=== PATIENT | male | born 2005 | race Asian ===

== ENCOUNTER 2024-08-15 13:31 | Emergency (ER) | payer OTHER ==
[~2024-08-15] VITALS: Ht 175.3 cm; Wt 105.3 kg
[2024-08-15 14:08] LABS: HEMATOCRIT 46.9 % (42.0-52.0); HEMOGLOBIN 15.7 g/dl (13.5-17.5); MEAN CORPUSCULAR HEMOGLOBIN 27.8 pg (27.0-33.0); MEAN CORPUSCULAR HGB CONC 33.5 g/dl (32.0-36.5); PLATELET COUNT, AUTOMATED 252 10^3/uL (150-450); RED BLOOD COUNT 5.65 10^6/uL (4.30-6.10); WHITE BLOOD COUNT 13.1 10^3/uL (4.0-10.0)
[2024-08-15 14:41] LABS: ETHYL ALCOHOL (ETHANOL) < 0.003 % (0.000-0.010)
[2024-08-15 14:43] LABS: ALBUMIN 4.3 G/DL (3.2-5.2); ALKALINE PHOSPHATASE 69 U/L (40-129); ALT/SGPT 50 U/L (7.0-40); AST/SGOT 51 U/L (<34); BILIRUBIN,DIRECT 0.2 MG/DL (<0.4); BILIRUBIN,TOTAL 0.7 MG/DL (0.3-1.2); BLOOD UREA NITROGEN 24 MG/DL (9-23); CALCIUM LEVEL 9.7 MG/DL (8.5-10.1); CARBON DIOXIDE LEVEL 25 MMOL/L (20-31); CHLORIDE LEVEL 104 MMOL/L (98-107); GLOMERULAR FILTRATION RATE > 60.0 (>60); GLUCOSE, FASTING 94 MG/DL (60-100); SALICYLATE LEVEL < 3.0 MG/DL (<30); SODIUM LEVEL 138 MMOL/L (136-145); TOTAL PROTEIN 7.9 G/DL (5.7-8.2)
[2024-08-15 14:51] LABS: AMPHETAMINES LEVEL URINE NEGATIVE (NEGATIVE); BARBITURATES URINE NEGATIVE (NEGATIVE); BENZODIAZEPINES URINE NEGATIVE (NEGATIVE); CANNABINOIDS URINE NEGATIVE (NEGATIVE); COCAINE METABOLITE URINE NEGATIVE (NEGATIVE); METHADONE URINE NEGATIVE (NEGATIVE); OPIATES URINE NEGATIVE (NEGATIVE); PHENCYCLIDINE URINE NEGATIVE (NEGATIVE)
[2024-08-15] MEDS ORDERED: FLUO-290 PO (15:49)
[2024-08-15] MEDS ORDERED: BUSP15TA47 PO (15:51)
[2024-08-15] MEDS ORDERED: HOME MED LIST COMPLETE! XX SCH (15:55)
[2024-08-15 16:06] VITALS: BP 147/93; TEMP 97.6; O2SAT 96
== END 2024-08-15 16:14 | disposition home or self-care (01) ==
LOC: EDBD 13:31 → M ED 13:31
DX: F32.A Depression, unspecified (principal); Z79.899 Other long term (current) drug therapy

== ENCOUNTER 2024-10-23 07:29 | Inpatient (IN) | payer OTHER ==
[~2024-10-23] VITALS: Ht 175.3 cm; Wt 104.5 kg
[~2024-10-23 07:29] MED LIST: BUSP15TA47 PO; FLUO-290 PO
[2024-10-23 08:23] LABS: HEMATOCRIT 49.5 % (42.0-52.0); HEMOGLOBIN 16.4 g/dl (13.5-17.5); MEAN CORPUSCULAR HEMOGLOBIN 27.7 pg (27.0-33.0); MEAN CORPUSCULAR HGB CONC 33.1 g/dl (32.0-36.5); MEAN CORPUSCULAR VOLUME 83.5 fl (80.0-96.0); PLATELET COUNT, AUTOMATED 232 10^3/uL (150-450); RED BLOOD COUNT 5.93 10^6/uL (4.30-6.10); WHITE BLOOD COUNT 8.7 10^3/uL (4.0-10.0)
[2024-10-23 08:41] LABS: AMPHETAMINES LEVEL URINE NEGATIVE (NEGATIVE); BARBITURATES URINE NEGATIVE (NEGATIVE); BENZODIAZEPINES URINE NEGATIVE (NEGATIVE); CANNABINOIDS URINE NEGATIVE (NEGATIVE); COCAINE METABOLITE URINE NEGATIVE (NEGATIVE); METHADONE URINE NEGATIVE (NEGATIVE); OPIATES URINE NEGATIVE (NEGATIVE); PHENCYCLIDINE URINE NEGATIVE (NEGATIVE)
[2024-10-23 08:42] LABS: ETHYL ALCOHOL (ETHANOL) 0.004 % (0.000-0.010)
[2024-10-23 08:44] LABS: ALBUMIN 4.5 G/DL (3.2-5.2); ALKALINE PHOSPHATASE 65 U/L (40-129); ALT/SGPT 43 U/L (7.0-40); AST/SGOT 28 U/L (<34); BILIRUBIN,DIRECT 0.2 MG/DL (<0.4); BILIRUBIN,TOTAL 0.9 MG/DL (0.3-1.2); BLOOD UREA NITROGEN 19 MG/DL (9-23); CALCIUM LEVEL 10.1 MG/DL (8.5-10.1); CARBON DIOXIDE LEVEL 25 MMOL/L (20-31); CHLORIDE LEVEL 104 MMOL/L (98-107); CREATININE FOR GFR 1.15 MG/DL (0.70-1.30); GLOMERULAR FILTRATION RATE > 60.0 (>60); GLUCOSE, FASTING 101 MG/DL (60-100); SALICYLATE LEVEL < 3.0 MG/DL (<30); SODIUM LEVEL 138 MMOL/L (136-145); TOTAL PROTEIN 8.1 G/DL (5.7-8.2)
[2024-10-23] MEDS ORDERED: HOME MED LIST COMPLETE! XX SCH (11:20)
[2024-10-23] MEDS ORDERED: ACETAMINOPHEN 325 MG TAB PO PRN (12:35)
[2024-10-23] MEDS ORDERED: MAALOX 30 ML SUSP *UDC PO PRN (12:35)
[2024-10-23] MEDS ORDERED: IBUPROFEN 400MG TAB PO PRN (12:35)
[2024-10-23] MEDS ORDERED: MOM 30ML SUSPENSION UDC PO PRN (12:35)
[2024-10-23 17:37] VITALS: BP 124/84; TEMP 97.6; O2SAT 97
[2024-10-23] MEDS: traZODone 50 MG TAB PO PRN (20:38)
[2024-10-24] MEDS: diphenhydrAMINE 25MG CAP PO PRN (00:54)
[2024-10-24 06:20] VITALS: BP 120/58; TEMP 97; O2SAT 97
[2024-10-24] MEDS ORDERED: LOPERAMIDE 2 MG CAPLET PO PRN (11:20)
[2024-10-24 16:33] VITALS: BP 136/88; TEMP 98.4; O2SAT 98
[2024-10-25 06:26] VITALS: BP 150/67; TEMP 97; O2SAT 95
[2024-10-25 14:53] VITALS: BP 150/67; TEMP 98.7; O2SAT 97
[2024-10-25] MEDS: RAMELTEON 8 MG TAB (ROZEREM) PO SCH (20:55)
[2024-10-26 06:20] VITALS: BP 120/68; TEMP 97.5; O2SAT 99
[2024-10-26 14:57] VITALS: BP 125/68; TEMP 98.2; O2SAT 98
[2024-10-26] MEDS: traZODone 50 MG TAB PO PRN (20:35)
[2024-10-27 06:25] VITALS: BP 100/50; TEMP 96.2; O2SAT 97
[2024-10-27] MEDS ORDERED: TRAZ-252 PO (08:53)
[2024-10-30 15:28] LABS: HLA-B27 Negative (Negative)
== END 2024-10-27 12:15 | disposition home or self-care (01) | DRG 881 ==
LOC: M ED 07:29 → M ED INP 12:31 → M PSY 17:36
PROVIDERS: ADMIT Psychiatry & Neurology Psychiatry; ATTEND Psychiatry & Neurology Psychiatry
DX: F32.A Depression, unspecified (principal); R45.851 Suicidal ideations; F41.9 Anxiety disorder, unspecified; Z79.899 Other long term (current) drug therapy; R19.7 Diarrhea, unspecified; M54.59 Other low back pain

== ENCOUNTER 2025-02-01 12:52 | Emergency (ER) | payer OTHER ==
[~2025-02-01] VITALS: Ht 175.3 cm; Wt 106.3 kg
[~2025-02-01 12:52] MED LIST changes: +TRAZ-252 PO
[2025-02-01 12:54] VITALS: TEMP 97.9
[2025-02-01] MEDS ORDERED: SERT25TA21 (13:00)
[2025-02-01] MEDS: LIDOCAINE 2% MDV 20ML VIAL SC ONE (17:20)
[2025-02-01 17:23] VITALS: BP 136/84; O2SAT 100
[2025-02-01] MEDS ORDERED: SULF1TAB23 PO (17:37)
== END 2025-02-01 17:46 | disposition home or self-care (01) ==
LOC: M ED 12:52
DX: L02.415 Cutaneous abscess of right lower limb (principal)

== ENCOUNTER 2025-09-04 03:03 | Inpatient (IN) | payer OTHER ==
[~2025-09-04] VITALS: Ht 175.3 cm; Wt 108.5 kg
[~2025-09-04 03:03] MED LIST changes: +SERT25TA21; +SULF-7 PO
[2025-09-04 04:29] LABS: PLATELET COUNT, AUTOMATED 238 10^3/uL (150-450)
[2025-09-04 04:54] LABS: AMPHETAMINES LEVEL URINE NEGATIVE (NEGATIVE); BARBITURATES URINE NEGATIVE (NEGATIVE); BENZODIAZEPINES URINE NEGATIVE (NEGATIVE); CANNABINOIDS URINE NEGATIVE (NEGATIVE); COCAINE METABOLITE URINE NEGATIVE (NEGATIVE); METHADONE URINE NEGATIVE (NEGATIVE); OPIATES URINE NEGATIVE (NEGATIVE); PHENCYCLIDINE URINE NEGATIVE (NEGATIVE)
[2025-09-04 04:55] LABS: ETHYL ALCOHOL (ETHANOL) < 0.003 % (0.000-0.010)
[2025-09-04 04:57] LABS: SALICYLATE LEVEL < 3.0 MG/DL (<30)
[2025-09-04 04:58] LABS: ALT/SGPT 33 U/L (7.0-40); AST/SGOT 25 U/L (<34); CALCIUM LEVEL 8.8 MG/DL (8.5-10.1); CARBON DIOXIDE LEVEL 25 MMOL/L (20-31); CHLORIDE LEVEL 104 MMOL/L (98-107); CREATININE FOR GFR 1.04 MG/DL (0.70-1.30); GLOMERULAR FILTRATION RATE > 90.0 (>60); POTASSIUM SERUM 3.8 MMOL/L (3.5-5.1); SODIUM LEVEL 140 MMOL/L (136-145)
[2025-09-04] MEDS ORDERED: traZODone 50 MG TAB PO PRN (06:05)
[2025-09-04] MEDS ORDERED: MOM 30 ML SUSPENSION UDC PO PRN (06:05)
[2025-09-04] MEDS ORDERED: OLANZapine 5 MG TAB PO PRN (06:05)
[2025-09-04] MEDS ORDERED: ACETAMINOPHEN 325 MG TAB PO PRN (06:05)
[2025-09-04] MEDS ORDERED: BUPR150T12 PO (08:28)
[2025-09-04] MEDS ORDERED: TRAZ1TAB10 PO (08:28)
[2025-09-04] MEDS ORDERED: HOME MED LIST COMPLETE! XX SCH (08:30)
[2025-09-04 09:55] VITALS: BP 131/78; TEMP 96.7; O2SAT 100
[2025-09-04 14:43] VITALS: BP 113/60; TEMP 97.6; O2SAT 100
[2025-09-04] MEDS: IBUPROFEN 400 MG TAB PO PRN (20:25)
[2025-09-05 06:27] VITALS: BP 113/63; TEMP 97; O2SAT 97
[2025-09-05] MEDS: buPROPion **XL** 150 MG TABLET PO SCH (09:00)
[2025-09-05 15:11] VITALS: BP 132/62; TEMP 97.7; O2SAT 95
[2025-09-05] MEDS: RAMELTEON 8 MG TAB PO SCH (21:00)
[2025-09-06 06:19] VITALS: BP 107/54; TEMP 97.7; O2SAT 98
[2025-09-06] MEDS: buPROPion **XL** 150 MG TABLET PO ONE (11:04)
[2025-09-06 16:24] VITALS: BP 128/66; TEMP 97.1; O2SAT 98
[2025-09-06] MEDS: MAALOX 30 ML SUSP *UDC PO PRN (20:55)
[2025-09-07 06:29] VITALS: BP 112/51; TEMP 97; O2SAT 99
[2025-09-07] MEDS: buPROPion **XL** 150 MG TABLET PO SCH (09:20)
[2025-09-07] MEDS ORDERED: LIDOCAINE 5% PATCH TD PRN (11:10)
[2025-09-07 14:27] VITALS: BP 119/64; TEMP 98; O2SAT 95
[2025-09-07] MEDS: traZODone 50 MG TAB PO PRN (20:11)
[2025-09-08 06:17] VITALS: BP 110/80; TEMP 98.1; O2SAT 100
[2025-09-08 15:06] VITALS: BP 133/69; TEMP 98.5; O2SAT 96
[2025-09-08] MEDS: traZODone 100 MG TAB PO PRN (22:29)
[2025-09-09 06:28] VITALS: BP 110/56; TEMP 96.8; O2SAT 96
[2025-09-09 15:14] VITALS: BP 134/79; TEMP 98.2; O2SAT 97
[2025-09-10 06:37] VITALS: BP 111/65; TEMP 97.5; O2SAT 99
[2025-09-11 06:36] VITALS: BP 104/59; TEMP 97.1; O2SAT 96
[2025-09-11] MEDS: ESCITALOPRAM OXALATE 5 MG TABLET PO SCH (08:32)
[2025-09-11] MEDS ORDERED: PILL CUTTER 1 EACH XX PRN (12:55)
[2025-09-11 19:35] VITALS: BP 133/86
[2025-09-11] MEDS: PROPRANOLOL 10 MG TAB PO PRN (19:35)
[2025-09-11] MEDS: traZODone 100 MG TAB PO PRN (20:11)
[2025-09-12 06:29] VITALS: BP 109/55; TEMP 97; O2SAT 99
[2025-09-12 17:16] VITALS: BP 134/68; TEMP 97.5; O2SAT 98
[2025-09-13 06:13] VITALS: BP 104/60; TEMP 97.5; O2SAT 96
[2025-09-13] MEDS ORDERED: BUPR-766 PO (09:12)
[2025-09-13] MEDS ORDERED: TRAZ1TAB10 PO (09:12)
[2025-09-13] MEDS ORDERED: PROP10TA56 PO (09:12)
[2025-09-13] MEDS ORDERED: LEXA1TAB PO (09:12)
[2025-09-13] MEDS: ESCITALOPRAM OXALATE 10 MG TABLET PO SCH (09:15)
[2025-09-13 14:26] VITALS: BP 153/89; TEMP 97.7; O2SAT 99
[2025-09-14 06:22] VITALS: BP 110/53; TEMP 97.1; O2SAT 98
[2025-09-14 15:36] VITALS: BP 121/79; TEMP 98.3; O2SAT 98
[2025-09-15 06:21] VITALS: BP 124/62; TEMP 97; O2SAT 97
[2025-09-15 15:04] VITALS: BP 135/60; TEMP 97.8; O2SAT 97
[2025-09-16 06:26] VITALS: BP 105/55; TEMP 96.5; O2SAT 98
[2025-09-16 15:14] VITALS: BP 126/63; TEMP 98.6; O2SAT 97
[2025-09-17 06:14] VITALS: BP 124/58; TEMP 97.4; O2SAT 99
== END 2025-09-17 11:07 | disposition home or self-care (01) | DRG 881 ==
LOC: M ED 03:03 → M ED INP 06:05 → M PSY 09:17
PROVIDERS: ADMIT Psychiatry & Neurology Neurology; ATTEND Psychiatry & Neurology Neurology
DX: F32.A Depression, unspecified (principal); R45.851 Suicidal ideations; F41.9 Anxiety disorder, unspecified; F10.10 Alcohol abuse, uncomplicated; G47.00 Insomnia, unspecified; F17.200 Nicotine dependence, unspecified, uncomplicated; Z79.899 Other long term (current) drug therapy